=== PATIENT | female | born 1970 | race Caucasian/White ===

== ENCOUNTER 2018-07-30 13:15 | Outpatient (CLI) | payer BC ==
--- NOTE | 2018-07-31 14:23 | Mammography Report ---
BILATERAL MAMMOGRAM: FINDINGS: The breast tissue is heterogeneously dense, which could obscure detection of small masses (approximately 50%-75% glandular). No mass, distortion, suspicious calcification, or skin change is seen. Comparison is made with the prior examination from the [place] in June 2017. There are no interval changes identified. CAD was utilized. IMPRESSION: Negative mammogram. There is no mammographic evidence of malignancy. RECOMMENDATION: Follow-up per ACS guidelines. BI-RADS CATEGORY: 1 = Negative ACR BI-RADS MAMMOGRAPHIC CODES: 0 = Needs additional imaging evaluation; 1 = Negative; 2 = Benign; 3 = Probably benign; 4 = Suspicious; 5 = Malignant; 6 = Known biopsy-proven malignancy COMMENT: 1. Dense breast tissue, i.e., adenosis, fibrocystic changes, etc., may obscure an underlying neoplasm. 2. Approximately 10% of cancers are not detected with mammography. 3. A negative mammography report should not delay biopsy if a clinically suspicious mass is present. COMMENT: Patient follow-up letters are generated in [employer].
== END 2018-07-30 13:16 | disposition home or self-care (01) ==
LOC: MAMMO 13:15
PROVIDERS: ATTEND Internal Medicine
DX: R92.8 Other abnormal and inconclusive findings on diagnostic imaging of breast (principal)
CPT/HCPCS: 77066

== ENCOUNTER 2018-09-05 10:50 | Emergency (ER) | payer BC ==
[2018-09-05] MEDS ORDERED: NACL 0.9% 1000 ML 1,000 ML IV ONE ×2 (11:05→14:45)
[2018-09-05 11:26] LABS: Basophils # (Auto) 0.1 K/mm3 (0.0-0.1); Basophils % (Auto) 0.6 % (0.0-1.8); Eosinophils # (Auto) 0.1 K/mm3 (0.0-0.4); Eosinophils % (Auto) 1.4 % (0.0-4.3); Hematocrit 34.2 % (30.3-42.9); Hemoglobin 11.1 gm/dl (10.1-14.3); Lymphocytes # (Auto) 2.2 K/mm3 (1.2-5.4); Lymphocytes % (Auto) 23.6 % (13.4-35.0); Mean Corpuscular HGB Conc 32 % (30-34); Mean Corpuscular Volume 75 fl (79-97); Monocytes # (Auto) 0.5 K/mm3 (0.0-0.8); Monocytes % (Auto) 5.5 % (0.0-7.3); Platelet Count 404 K/mm3 (140-440); Red Blood Count 4.58 M/mm3 (3.65-5.03); Red Cell Distribution Width 18.8 % (13.2-15.2)
[2018-09-05 11:37] LABS: Bilirubin,Urine NEG (Negative); Blood,Urine MOD (Negative); Color,Urine Yellow (Yellow); Mucus,Urine FEW /HPF; Protein,Urine <15 mg/dL mg/dL (Negative); Urobilinogen,Urine < 2.0 mg/dL (<2.0)
[2018-09-05 11:48] LABS: Alanine Aminotransferase 16 units/L (7-56); BUN/Creatinine Ratio 18; Blood Urea Nitrogen 9 mg/dL (7-17); Calcium 8.9 mg/dL (8.4-10.2); Hemolysis Index 6
[2018-09-05] MEDS ORDERED: ZOFRAN ODT PO ONE (14:37)
[2018-09-05] MEDS ORDERED: NORCO 5/325 PO ONE (14:37)
[2018-09-05] MEDS ORDERED: MORPHINE IV ONE (14:45)
[2018-09-05] MEDS ORDERED: ZOFRAN IV ONE (14:45)
--- NOTE | 2018-09-05 14:45 | Emergency Department Report ---
ED General Adult HPI - General Chief complaint: Abdominal Pain Stated complaint: DIARRHEA/RT SIDE PAIN Time Seen by Provider: 09/05/18 14:06 Source: patient, lpn per diem Mode of arrival: Ambulatory Limitations: No Limitations - History of Present Illness Initial comments: Patient presents to the emergency department with a chief complaint of diarrhea 5 days and right flank pain. Patient denies nausea or vomiting. Patient denies any recent travel or visiting a petting zoo -: Gradual Location: abdomen Radiation: non-radiation Severity scale (0 -10): 8 Quality: aching Consistency: constant Improves with: none Worsens with: none Associated Symptoms: denies other symptoms Treatments Prior to Arrival: none - Related Data Previous Rx's Medication Instructions Recorded Last Taken Type Diphenoxylate/Atropine [Lomotil] 1 tab PO QID PRN #8 tablet 09/05/18 Unknown Rx Allergies Allergy/AdvReac Type Severity Reaction Status Date / Time No Known Allergies Allergy Unverified 09/05/18 10:55 ED Review of Systems ROS: Stated complaint: DIARRHEA/RT SIDE PAIN Other details as noted in HPI Comment: All other systems reviewed and negative Constitutional: denies: chills, fever Eyes: denies: eye pain, eye discharge, vision change ENT: denies: ear pain, throat pain Respiratory: denies: cough, shortness of breath, wheezing Cardiovascular: denies: chest pain, palpitations Endocrine: no symptoms reported Gastrointestinal: abdominal pain, diarrhea. denies: nausea Genitourinary: denies: urgency, dysuria, discharge Musculoskeletal: denies: back pain, joint swelling, arthralgia Skin: denies: rash, lesions Neurological: denies: headache, weakness, paresthesias Psychiatric: denies: anxiety, depression Hematological/Lymphatic: denies: easy bleeding, easy bruising ED Past Medical Hx - Past Medical History Previous Medical History?: Yes Additional medical history: Hx of kidney stones - Surgical History Hx Cholecystectomy: Yes - Social History Smoking Status: Never Smoker Substance Use Type: None - Medications Home Medications: Home Medications Medication Instructions Recorded Confirmed Last Taken Type Diphenoxylate/Atropine [Lomotil] 1 tab PO QID PRN #8 tablet 09/05/18 Unknown Rx ED Physical Exam - General Limitations: No Limitations General appearance: alert, in no apparent distress - Head Head exam: Present: atraumatic, normocephalic - Eye Eye exam: Present: normal appearance, PERRL, EOMI - ENT ENT exam: Present: mucous membranes moist - Neck Neck exam: Present: normal inspection - Respiratory Respiratory exam: Present: normal lung sounds bilaterally. Absent: respiratory distress - Cardiovascular Cardiovascular Exam: Present: regular rate, normal rhythm. Absent: systolic murmur, diastolic murmur, rubs, gallop - GI/Abdominal GI/Abdominal exam: Present: soft, tenderness (TTP right flank), normal bowel sounds. Absent: distended - Extremities Exam Extremities exam: Present: normal inspection - Back Exam Back exam: Present: normal inspection - Neurological Exam Neurological exam: Present: alert, oriented X3, CN II-XII intact. Absent: motor sensory deficit - Psychiatric Psychiatric exam: Present: normal affect, normal mood - Skin Skin exam: Present: warm, dry, intact, normal color. Absent: rash ED Course Vital Signs 09/05/18 09/05/18 09/05/18 11:01 14:46 15:11 Temperature 98.8 F Pulse Rate 90 84 Respiratory 20 20 16 Rate Blood Pressure 151/87 Blood Pressure 132/80 [Right] O2 Sat by Pulse 98 98 Oximetry ED Medical Decision Making - Lab Data Result diagrams: 09/05/18 11:17 09/05/18 11:17 Lab Results 09/05/18 09/05/18 09/05/18 Range/Units 11:17 11:17 11:21 WBC 9.4 (4.5-11.0) K/mm3 RBC 4.58 (3.65-5.03) M/mm3 Hgb 11.1 (10.1-14.3) gm/dl Hct 34.2 (30.3-42.9) % MCV 75 L (79-97) fl MCH 24 L (28-32) pg MCHC 32 (30-34) % RDW 18.8 H (13.2-15.2) % Plt Count 404 (140-440) K/mm3 Lymph % (Auto) 23.6 (13.4-35.0) % Cole % (Auto) 5.5 (0.0-7.3) % Eos % (Auto) 1.4 (0.0-4.3) % Baso % (Auto) 0.6 (0.0-1.8) % Lymph # 2.2 (1.2-5.4) K/mm3 Cole # 0.5 (0.0-0.8) K/mm3 Eos # 0.1 (0.0-0.4) K/mm3 Baso # 0.1 (0.0-0.1) K/mm3 Seg Neutrophils % 68.9 (40.0-70.0) % Seg Neutrophils # 6.4 (1.8-7.7) K/mm3 Sodium 141 (137-145) mmol/L Potassium 3.4 L (3.6-5.0) mmol/L Chloride 103.4 (98-107) mmol/L Carbon Dioxide 27 (22-30) mmol/L Anion Gap 14 mmol/L BUN 9 (7-17) mg/dL Creatinine 0.5 L (0.7-1.2) mg/dL Estimated GFR > 60 ml/min BUN/Creatinine Ratio 18 % Glucose 110 H (65-100) mg/dL Calcium 8.9 (8.4-10.2) mg/dL Total Bilirubin 0.30 (0.1-1.2) mg/dL AST 17 (5-40) units/L ALT 16 (7-56) units/L Alkaline Phosphatase 69 (35-129) units/L Total Protein 7.6 (6.3-8.2) g/dL Albumin 4.0 (3.9-5) g/dL Albumin/Globulin Ratio 1.1 % Lipase 22 (13-60) units/L Urine Color Yellow (Yellow) Urine Turbidity Clear (Clear) Urine pH 6.0 (5.0-7.0) Ur Specific Ocate 1.011 (1.003-1.030) Urine Protein <15 mg/dl (Negative) mg/dL Urine Glucose (UA) Neg (Negative) mg/dL Urine Ketones Neg (Negative) mg/dL Urine Blood Mod (Negative) Urine Nitrite Neg (Negative) Urine Bilirubin Neg (Negative) Urine Urobilinogen < 2.0 (<2.0) mg/dL Ur Leukocyte Esterase Neg (Negative) Urine WBC (Auto) 2.0 (0.0-6.0) /HPF Urine RBC (Auto) 11.0 (0.0-6.0) /HPF U Epithel Cells (Auto) 2.0 (0-13.0) /HPF Urine Mucus Few /HPF - Radiology Data Radiology results: report reviewed - Medical Decision Making Discussed results with patient and her lpn per diem Critical care attestation.: If time is entered above; I have spent that time in minutes in the direct care of this critically ill patient, excluding procedure time. ED Disposition Clinical Impression: Diarrhea, Flank pain Disposition: DC- TO HOME OR SELFCARE Is pt being admited?: No Does the pt Need Aspirin: No Condition: Stable Instructions: Flank Pain (ED), Acute Diarrhea (ED) Additional Instructions: return if worse Prescriptions: Diphenoxylate/Atropine [Lomotil] 1 tab PO QID PRN #8 tablet PRN Reason: Diarrhea Referrals: PRIMARY CARE,MD [Primary Care Provider] - 3-5 Days [facility] [Provider Group] - 3-5 Days [facility] [Provider Group] - 3-5 Days Forms: Work/School Release Form(ED) Time of Disposition: 17:24
--- NOTE | 2018-09-05 16:29 | Cat Scan Report ---
PROCEDURE: CT ABDOMEN PELVIS WO CON TECHNIQUE: CT abdomen and pelvis without contrast HISTORY: right flank pain COMPARISONS: FINDINGS: No focal abnormality identified in the lung bases. The nonenhanced images no focal abnormality identi fied within the first spleen or pancreas. Is nondistended. No evidence for colonic or small bowel distention Multiple bilateral renal calculi are present. There are 4 punctate nonobstructing right renal calculi. Within the right renal pelvis there is a 0.6 9 cm calculus no evidence for hydronephrosis. On the left 5 calculi are identified. Largest seen is within the renal pelvis measuring 0.84 cm. Sherman tionally within the lower pole there is 0.62 and 0.64 cm nonobstructing calculi. Additional punctate calculus noted at the lower pole. Low-density focus upper pole of the left kidney incompletely charac terized however most likely a cyst. No ureteral calculi identified bilaterally. Urinary bladder is unremarkable. No free fluid or free air identified The appendix is not definitively identified. IMPRESSION: Multiple bilateral nonobstructing renal calculi Low-density focus upper pole left kidney probable cyst.. This document is electronically signed by Orlando Rodriguez MD., September 05 2018 04:27:46 PM ET
[2018-09-05 17:41] VITALS: BP 130/81
== END 2018-09-05 17:43 | disposition home or self-care (01) ==
LOC: ED 10:50
DX: R10.9 Unspecified abdominal pain (principal); R19.7 Diarrhea, unspecified; Z90.49 Acquired absence of other specified parts of digestive tract
CPT/HCPCS: 36415; 74176; 80053; 81001; 83690; 85025; 96361; 96374; 96375; 99284; J2270; J2405; J7030; Q0162

== ENCOUNTER 2018-09-18 08:21 | Day surgery (SDC) | payer BC ==
--- NOTE | 2018-09-18 09:29 | Anesthesia Consultation ---
Anesthesia Consult and Med Hx Date of service: 09/18/18 - Airway Anesthetic Teeth Evaluation: Good ROM Head & Neck: Adequate Mental/Hyoid Distance: Adequate Mallampati Class: Class II Intubation Access Assessment: Good - Pulmonary Exam CTA: Yes - Cardiac Exam Cardiac Exam: RRR - Pre-Operative Health Status ASA Pre-Surgery Classification: ASA2 Proposed Anesthetic Plan: General - Pulmonary Hx Smoking: No Hx Asthma: Yes (INHALER PRN) Hx Sleep Apnea: No (JANET PRE SCREEN LOW RISK.) - Cardiovascular System Hx Hypertension: No - Central Nervous System Hx Back Pain: Yes (FROM STONE) - Hematic Hx Anemia: Yes - Other Systems Hx Cancer: No
[2018-09-18] MEDS ORDERED: ZOFRAN IV PRN (09:30)
[2018-09-18] MEDS ORDERED: DILAUDID IV PRN (09:30)
[2018-09-18] MEDS ORDERED: SUBLIMAZE IV PRN (09:30)
[2018-09-18] MEDS ORDERED: NARCAN 0.4 MG/1 ML IV PRN (09:30)
--- NOTE | 2018-09-18 09:30 | Anesthesia Day of Surgery ---
Anesthesia Day of Surgery - Day of Surgery Patient Examined: Yes Patient H&P Reviewed: Yes Patient is NPO: Yes Beta Blockers: No Cardiac Clearance: No Pulmonary Clearance: No
[2018-09-18] MEDS ORDERED: LACTATED RINGERS 1,000 ML IV SCH (10:00)
[2018-09-18] MEDS ORDERED: DIPRIVAN 10 MG/ML IV ONE (11:07)
[2018-09-18] MEDS ORDERED: SUBLIMAZE ONE (11:07)
[2018-09-18] MEDS ORDERED: XYLOCAINE MPF 2% ONE (11:13)
[2018-09-18] MEDS ORDERED: DECADRON ONE (11:13)
[2018-09-18] MEDS ORDERED: ZOFRAN ONE (11:13)
[2018-09-18] MEDS ORDERED: NEO SYNEPHRINE/NS Syringe(OR USE) IV ONE (11:13)
[2018-09-18] MEDS ORDERED: PEPCID IV ONE (11:37)
[2018-09-18] MEDS ORDERED: ANCEF/STERILE WATER 2 GM/20 ML IV NR (12:00)
--- NOTE | 2018-09-18 12:04 | Post Operative Note ---
Date of procedure: 09/18/18 Pre-op diagnosis: bilat stones no hydro Post-op diagnosis: same Findings: same Procedure: r eswl Anesthesia: BAKARI Surgeon: ROBERT JOHN Estimated blood loss: none Pathology: none Condition: stable Disposition: PACU
--- NOTE | 2018-09-18 12:05 | Discharge Summary ---
Short Stay Discharge Plan Activity: other (no strioaning ) Weight Bearing Status: Full Weight Bearing Diet: low fat, low cholesterol, low salt Special Instructions: other (inc fluids ) Follow up with: PRIMARY CARE, [Primary Care Provider] - 7 Days ROBERT JOHN MD [Staff Physician] - 7 Days Forms: Outpatient Surgery DC Inst.
--- NOTE | 2018-09-18 13:17 | Operative Report ---
PREOPERATIVE DIAGNOSES: Bilateral renal stones, right flank pain. POSTOPERATIVE DIAGNOSES: Bilateral renal stones, right flank pain. PROCEDURE: Right in situ lithotripsy. SURGEON: Jan Fierro MD ANESTHESIA: General. FINDINGS: This is a woman who has intermittent pain. She has a right renal pelvic stone, left renal pelvic stone with no hydronephrosis. She now presents for right lithotripsy. DESCRIPTION OF PROCEDURE: The patient was brought to lithotripsy and placed on the table. Stone was easily localized, both the AP and oblique image. Shocks were begun at 1 kV and increased to maximum of 7 kV. Total of 2500 shocks were given. The patient tolerated the procedure well. No significant complications. The plan will be a staged treatment of the other side once we were sure that there is no hydronephrosis and the pieces have passed She understands that she may require stenting or ureteroscopy if any of the pieces get stuck. She tolerated the procedure well and brought to recovery in stable condition. JOB# [id number] DALTON/EDGAR
[2018-09-18 17:31] VITALS: BP 136/83
== END 2018-09-18 14:15 | disposition home or self-care (01) ==
LOC: OR 08:21
PROVIDERS: ATTEND Urology
DX: N20.0 Calculus of kidney (principal); E78.00 Pure hypercholesterolemia, unspecified; J45.909 Unspecified asthma, uncomplicated; D64.9 Anemia, unspecified; Z80.3 Family history of malignant neoplasm of breast; Z79.899 Other long term (current) drug therapy; Z88.8 Allergy status to other drugs, medicaments and biological substances
CPT/HCPCS: 50590; 81025; J0690; J1100; J2370; J2405; J2704; J3010; J7120

== ENCOUNTER 2019-02-13 08:48 | Outpatient (CLI) | payer BC ==
[2019-02-13 11:16] LABS: Basophils # (Auto) 0.1 K/mm3 (0.0-0.1); Basophils % (Auto) 0.5 % (0.0-1.8); Eosinophils # (Auto) 0.1 K/mm3 (0.0-0.4); Eosinophils % (Auto) 0.8 % (0.0-4.3); Hematocrit 35.5 % (30.3-42.9); Lymphocytes # (Auto) 2.4 K/mm3 (1.2-5.4); Lymphocytes % (Auto) 20.8 % (13.4-35.0); Mean Corpuscular HGB Conc 31 % (30-34); Mean Corpuscular Volume 76 fl (79-97); Monocytes # (Auto) 0.5 K/mm3 (0.0-0.8); Monocytes % (Auto) 4.7 % (0.0-7.3); Platelet Count 364 K/mm3 (140-440); Red Cell Distribution Width 18.3 % (13.2-15.2)
[2019-02-13 11:35] LABS: Chol/HDL Ratio 4.62 %
[2019-02-18 11:09] LABS: Vitamin D, 25-OH, D2 5 ng/mL
== END 2019-02-13 08:49 | disposition home or self-care (01) ==
LOC: LAB 08:48
PROVIDERS: ATTEND Internal Medicine
DX: E78.5 Hyperlipidemia, unspecified (principal); E55.9 Vitamin D deficiency, unspecified; E61.1 Iron deficiency; E78.00 Pure hypercholesterolemia, unspecified
CPT/HCPCS: 36415; 80061; 82306; 82728; 83550; 85025

== ENCOUNTER 2019-02-26 07:50 | Day surgery (SDC) | payer BC ==
--- NOTE | 2019-02-26 08:50 | Anesthesia Day of Surgery ---
Anesthesia Day of Surgery - Day of Surgery Patient Examined: Yes Patient H&P Reviewed: Yes Patient is NPO: Yes
--- NOTE | 2019-02-26 08:50 | Anesthesia Consultation ---
Anesthesia Consult and Med Hx Date of service: 02/26/19 - Airway Anesthetic Teeth Evaluation: Good ROM Head & Neck: Adequate Mental/Hyoid Distance: Adequate Mallampati Class: Class II Intubation Access Assessment: Good - Pulmonary Exam CTA: Yes - Cardiac Exam Cardiac Exam: RRR - Pre-Operative Health Status ASA Pre-Surgery Classification: ASA2 Proposed Anesthetic Plan: General - Pulmonary Hx Smoking: No Hx Asthma: Yes (INHALER PRN) Hx Sleep Apnea: No (JANET PRE SCREEN HIGH RISK.) - Cardiovascular System Hx Hypertension: No - Central Nervous System Hx Back Pain: Yes (FROM STONE) - Hematic Hx Anemia: Yes - Other Systems Hx Cancer: No Hx Obesity: Yes (Morbid obesity BMI 42.1)
[2019-02-26] MEDS ORDERED: ZOFRAN IV PRN (09:00)
[2019-02-26] MEDS ORDERED: VERSED IV NR (09:00)
[2019-02-26] MEDS ORDERED: DILAUDID IV PRN (09:00)
[2019-02-26] MEDS ORDERED: TRANSDERM-SCOP TD NR (09:00)
[2019-02-26] MEDS ORDERED: LACTATED RINGERS 1,000 ML IV SCH (09:00)
[2019-02-26] MEDS ORDERED: ANCEF/STERILE WATER 2 GM/20 ML IV NR (09:30)
[2019-02-26] MEDS ORDERED: XYLOCAINE MPF 2% ONE (10:23)
[2019-02-26] MEDS ORDERED: VERSED ONE (10:23)
[2019-02-26] MEDS ORDERED: SUBLIMAZE ONE (10:24)
[2019-02-26] MEDS ORDERED: DIPRIVAN 10 MG/ML IV ONE (10:24)
--- NOTE | 2019-02-26 10:48 | Post Operative Note ---
Date of procedure: 02/26/19 Pre-op diagnosis: L ureteral stone Post-op diagnosis: same Findings: large stone Procedure: L eswl Anesthesia: BAKARI Surgeon: ROBERT JOHN Estimated blood loss: none Pathology: none Condition: stable Disposition: PACU
--- NOTE | 2019-02-26 10:49 | Discharge Summary ---
Short Stay Discharge Plan Activity: other (no straining ) Weight Bearing Status: Full Weight Bearing Diet: low fat, low cholesterol, low salt Special Instructions: other (inc fluids ) Follow up with: DAYDAY CLAY MD [Primary Care Provider] - 7 Days ROBERT JOHN MD [Staff Physician] - 7 Days
[2019-02-26] MEDS ORDERED: ZOFRAN ONE (11:10)
[2019-02-26] MEDS ORDERED: LACTATED RINGERS 1,000 ML ONE (11:10)
--- NOTE | 2019-02-26 11:51 | Operative Report ---
PREOPERATIVE DIAGNOSIS: Large left ureteral stone with a previous stent. POSTOPERATIVE DIAGNOSIS: Large left ureteral stone with a previous stent. PROCEDURE: Left lithotripsy. SURGEON: Dr. Fierro. ANESTHESIA: General. FINDINGS: This is a woman who had a stone that we were trying to electively treat. She had to go out of town into her country and when she came back, the stone was now in her ureter with severe pain. A stent was placed and now she presents for lithotripsy. DESCRIPTION OF PROCEDURE: The patient was brought to the lithotripsy suite and placed on the table. Stone was well localized, both the AP and oblique image. Shocks were begun at 1 kV, increased to 9 kV. A total of 2600 shocks were given. The patient tolerated the procedure well. There was minimal fragmentation. I suspect she will either need percutaneous nephrolithotomy or attempted ureteroscopy. She tolerated the procedure well and brought to recovery in stable condition. JOB# [id number] DALTON/EDGAR
[2019-02-26 13:03] VITALS: BP 104/71
--- NOTE | 2019-02-26 13:31 | Post Anesthesia Evaluation ---
- Post Anesthesia Evaluation Patient Participated: Yes Airway Patent: Yes Stable Respiratory Function: Yes Nausea/Vomiting: No Temp > 96.8F: Yes Pain Manageable: Yes Adequeate Hydration: Yes Anesthesia Complications: No Block Receding Appropriately: Not Applicable Patient on Ventilator: No
== END 2019-02-26 07:51 | disposition home or self-care (01) ==
LOC: OR 07:50
PROVIDERS: ATTEND Urology
DX: N20.1 Calculus of ureter (principal); E78.00 Pure hypercholesterolemia, unspecified; J45.909 Unspecified asthma, uncomplicated; E66.9 Obesity, unspecified; K21.9 Gastro-esophageal reflux disease without esophagitis; Z79.899 Other long term (current) drug therapy; Z88.8 Allergy status to other drugs, medicaments and biological substances; Z90.49 Acquired absence of other specified parts of digestive tract; Z68.41 Body mass index [BMI] 40.0-44.9, adult; Z98.890 Other specified postprocedural states; Z80.3 Family history of malignant neoplasm of breast; Z86.2 Personal history of diseases of the blood and blood-forming organs and certain disorders involving the immune mechanism
CPT/HCPCS: 50590; 81025; J2250; J2405; J2704; J3010; J7120

== ENCOUNTER 2019-03-25 12:44 | Day surgery (SDC) | payer BC ==
--- NOTE | 2019-03-25 13:35 | Anesthesia Consultation ---
Anesthesia Consult and Med Hx Date of service: 03/25/19 - Airway Anesthetic Teeth Evaluation: Good ROM Head & Neck: Adequate Mental/Hyoid Distance: Adequate Mallampati Class: Class II Intubation Access Assessment: Good - Pulmonary Exam CTA: Yes - Cardiac Exam Cardiac Exam: RRR - Pre-Operative Health Status ASA Pre-Surgery Classification: ASA3 Proposed Anesthetic Plan: General (JANET, Obesity , DMV post op Nausea for GA) - Pulmonary Hx Smoking: No Hx Asthma: Yes (INHALER PRN) COPD: No Hx Sleep Apnea: Yes (DX SLEEP APNEA , NO CPAP USE (RECENT DX)) - Cardiovascular System Hx Hypertension: No (OCC. NO MEDICATIONS) - Central Nervous System Hx Back Pain: Yes (FROM STONE) Hx Psychiatric Problems: No - Hematic Hx Anemia: Yes - Other Systems Hx Alcohol Use: No Hx Substance Use: No Hx Cancer: No Hx Obesity: Yes (Morbid obesity BMI 42.1)
--- NOTE | 2019-03-25 13:36 | Anesthesia Day of Surgery ---
Anesthesia Day of Surgery - Day of Surgery Patient Examined: Yes Patient H&P Reviewed: Yes Patient is NPO: Yes
[2019-03-25] MEDS ORDERED: HYDROmorphone 1 MG/1 ML INJ IV PRN (13:37)
[2019-03-25] MEDS ORDERED: ONDANSETRON 4 MG/2 ML INJ IV PRN (13:37)
[2019-03-25] MEDS ORDERED: MIDAZOLAM 2 MG/2 ML INJ IV NR (14:00)
[2019-03-25] MEDS ORDERED: LACTATED RINGERS 1,000 ML IV SCH (14:00)
[2019-03-25] MEDS ORDERED: ceFAZolin/STERILE WATER 2 GM/20 ML SYRINGE IV NR (14:02)
[2019-03-25] MEDS ORDERED: fentaNYL 100 MCG/2 ML INJ ONE (14:16)
[2019-03-25] MEDS ORDERED: LIDOCAINE MPF (2%) 20 MG/1 ML VIAL 5 ML ONE (14:16)
[2019-03-25] MEDS ORDERED: PROPOFOL 200 MG/20 ML VIAL IV ONE (14:16)
[2019-03-25] MEDS ORDERED: ONDANSETRON 4 MG/2 ML INJ ONE (14:16)
--- NOTE | 2019-03-25 15:39 | Post Operative Note ---
Date of procedure: 03/25/19 Pre-op diagnosis: ureteral stone Post-op diagnosis: same Findings: large stone Procedure: cysto ureteroscopy laser Surgeon: ROBERT JOHN Estimated blood loss: minimal Pathology: none Condition: stable Disposition: PACU
--- NOTE | 2019-03-25 15:40 | Discharge Summary ---
Short Stay Discharge Plan Activity: other (no straining ) Weight Bearing Status: Full Weight Bearing Diet: low fat, low cholesterol, low salt Special Instructions: other (inc fluids ) Durable Medical Equipment Needed Upon Discharge: other (has stent ) Follow up with: DAYDAY CLAY MD [Primary Care Provider] - 7 Days ROBERT JOHN MD [Staff Physician] - 7 Days
[2019-03-25] MEDS ORDERED: SCOPOLAMINE TRANSDERMAL PATCH 72 HR TD ONE (15:56)
[2019-03-25] MEDS ORDERED: IOHEXOL 300 MG/ML 50ML IV ONE (16:30)
[2019-03-25] MEDS ORDERED: KETOROLAC 30 MG/1 ML INJ ONE (16:43)
[2019-03-25] MEDS ORDERED: HYDROmorphone 1 MG/1 ML INJ ONE (16:44)
--- NOTE | 2019-03-25 17:40 | Fluoroscopy Report ---
5 fluoroscopic images submitted Indication: Intraoperative localization Impression: 5 images of the abdomen were submitted for documentation purposes with radiology involve ment. Bilateral retrograde pyelography performed with left-sided stone removal and stent placement. Please refer to the operative note for complete details. A total of 10 mL of Omnipaque 300 was utiliz ed. Fluoroscopic time: 2 minutes and 28 seconds Signer Name: Garett Artis MD Signed: 03/25/2019 5:35 PM Workstation Name: [id number]
--- NOTE | 2019-03-25 18:41 | Operative Report ---
PREOPERATIVE DIAGNOSIS: Large left upper ureteral stone. POSTOPERATIVE DIAGNOSES: Large left upper ureteral stone. PROCEDURE: Staged procedure, cystoscopy, left ureteroscopy, transposition the stone to the kidney and laser of the stone. SURGEON: Dr. Fierro. ANESTHESIA: General. FINDINGS: This is a woman with a large stone, lithotripsy cracked it just barely. She now presents for second stage of treatment. DESCRIPTION OF PROCEDURE: The patient was brought to the operating room and placed on the operating table. Following induction of anesthesia, prepped and draped in usual sterile fashion. Following induction of anesthesia, a stent was attempted to be withdrawn. It held up around the stent. A wire coiled in the kidney alongside the stent with an open end. We were then able to remove the stent. A second wire was placed with a double lumen catheter. Flexible ureteroscopy showed the stone. We pushed it into the kidney in the upper pole and lasered it into at least 8-10 pieces. The patient tolerated the procedure well. No significant complication. A double-J 7-Lithuanian coiled in the kidney and bladder and we will take the stent out in about 2 weeks. JOB# [id number] DALTON/EDGAR
[2019-03-25 19:04] VITALS: BP 145/70
== END 2019-03-25 18:55 | disposition home or self-care (01) ==
LOC: OR 12:44
PROVIDERS: ATTEND Urology
DX: N20.1 Calculus of ureter (principal); G47.30 Sleep apnea, unspecified; E66.9 Obesity, unspecified; K21.9 Gastro-esophageal reflux disease without esophagitis; Z79.899 Other long term (current) drug therapy; Z90.49 Acquired absence of other specified parts of digestive tract; Z80.3 Family history of malignant neoplasm of breast; Z86.2 Personal history of diseases of the blood and blood-forming organs and certain disorders involving the immune mechanism; Z88.8 Allergy status to other drugs, medicaments and biological substances
CPT/HCPCS: 52356; 74420; 81025; C1758; C1769; C2617; J0690; J1170; J1885; J2250; J2405; J2704; J3010; J7120; Q9967

== ENCOUNTER 2019-05-11 11:58 | Day surgery (SDC) | payer BC ==
[2019-05-11] MEDS ORDERED: SODIUM CHLORIDE 0.9% 1000 ML 1,000 ML IV SCH (12:45)
--- NOTE | 2019-05-11 12:55 | Anesthesia Day of Surgery ---
Anesthesia Day of Surgery - Day of Surgery Patient Examined: Yes Patient H&P Reviewed: Yes Patient is NPO: Yes
--- NOTE | 2019-05-11 12:56 | Anesthesia Consultation ---
Anesthesia Consult and Med Hx Date of service: 05/11/19 - Airway Anesthetic Teeth Evaluation: Good ROM Head & Neck: Adequate Mental/Hyoid Distance: Adequate Mallampati Class: Class II Intubation Access Assessment: Probably Good - Pre-Operative Health Status ASA Pre-Surgery Classification: ASA3 Proposed Anesthetic Plan: MAC - Pulmonary Hx Smoking: No Hx Asthma: Yes (INHALER PRN. Allergic) COPD: No Hx Sleep Apnea: Yes (DX SLEEP APNEA , NO CPAP USE (RECENT DX)) - Cardiovascular System Hx Hypertension: No (OCC. NO MEDICATIONS) - Central Nervous System Hx Back Pain: Yes (FROM STONE) Hx Psychiatric Problems: No - Gastrointestinal Hx Gastroesophageal Reflux Disease: Yes - Endocrine Hx Renal Disease: Yes (Stones) - Hematic Hx Anemia: Yes - Other Systems Hx Alcohol Use: No Hx Substance Use: No Hx Cancer: No Hx Obesity: Yes (Morbid obesity BMI 42.1)
[2019-05-11] MEDS ORDERED: PROPOFOL 200 MG/20 ML VIAL IV ONE ×2 (13:20→13:21)
--- NOTE | 2019-05-11 13:46 | Procedure Note ---
Date of procedure: 05/11/19 Pre-op diagnosis: GERD Post-op diagnosis: other (Mild to Moderate Erosive Esophagitis/Gastric Nodules (Gastric Body)/Gastritis/No Peptic Ulcer disease noted/Patent Pylorus/R/O Celiac Disease) Procedure: EGD with Biopsy Anesthesia: [facility] Surgeon: RUSLAN MESSINA Estimated blood loss: minimal Pathology: list Specimen disposition: to lab Condition: stable Disposition: same day (Treat with PPI and Baclofen and avoid aspirin and NSAID for 4 days; otherwise resume home medication. Follow up in 1 to 2 weeks ([phone]).)
--- NOTE | 2019-05-11 13:53 | Operative Report ---
PROCEDURE: Esophagogastroduodenoscopy with biopsy. INDICATIONS: This is a 48-year-old obese female who has been having GERD symptoms in spite of being on PPI. EGD was done to assess for the problem. DESCRIPTION OF PROCEDURE: Procedure was done after getting informed consent with MAC anesthesia. Instrument was passed through the hypopharynx into the esophagus, which showed mild to moderate distal erosive esophagitis. Photo documentation and biopsy was obtained from this area. The stomach showed gastric nodules and gastric polyps in the proximal stomach. Photo documentation and biopsies were obtained. Additional biopsy was also obtained from the gastric antrum, gastric body and angular incisura to rule out for H. pylori and atrophic gastritis. The pylorus was patent. The duodenum in the first and the second portion appeared normal. Biopsy was done from the second part to rule out for celiac disease. There was no peptic ulcer disease noted and minimal bleeding associated with the procedure. No complications associated with the procedure. ASSESSMENT: Gastroesophageal reflux disease symptoms, mild to moderate erosive esophagitis, gastritis, gastric polyp, gastric nodules, especially in the proximal stomach. Patent pylorus. No peptic ulcer disease noted and biopsy done to rule out for possible celiac disease. There was minimal bleeding associated with the procedure. No complications associated with the procedure. PLAN: To continue treatment with PPI. Also to add baclofen. Have the patient avoid aspirin and aspirin-related products for the next few days and follow up in the office in 1-2 weeks' time. The patient's treatment adjustment will be made according to the biopsy findings. The procedure was done in the GI lab with assistance of the GI lab team, which included TAL Walker as well as the production technologist and with assistance of anesthesia. JOB# [id number] STEPHEN/EDGAR
[2019-05-11 14:07] VITALS: BP 127/70
== END 2019-05-11 11:59 | disposition home or self-care (01) ==
LOC: GIO 11:58
DX: K21.0 Gastro-esophageal reflux disease with esophagitis (principal); K27.9 Peptic ulcer, site unspecified, unspecified as acute or chronic, without hemorrhage or perforation; K29.70 Gastritis, unspecified, without bleeding; K31.89 Other diseases of stomach and duodenum; J45.909 Unspecified asthma, uncomplicated; G47.30 Sleep apnea, unspecified; E66.9 Obesity, unspecified; Z98.890 Other specified postprocedural states; Z90.49 Acquired absence of other specified parts of digestive tract; Z88.8 Allergy status to other drugs, medicaments and biological substances; Z79.899 Other long term (current) drug therapy; Z68.41 Body mass index [BMI] 40.0-44.9, adult; Z87.442 Personal history of urinary calculi; Z80.3 Family history of malignant neoplasm of breast; Z86.2 Personal history of diseases of the blood and blood-forming organs and certain disorders involving the immune mechanism
CPT/HCPCS: 43239; 81025; 88305; 88342; J2704; J7030

== ENCOUNTER 2021-01-05 08:25 | Day surgery (SDC) | payer BC ==
[~2021-01-05 08:25] MED LIST: LACTATED RINGERS 1,000 ML IV SCH; SCOPOLAMINE TRANSDERMAL PATCH 72 HR TD NR
--- NOTE | 2021-01-05 10:23 | Anesthesia Day of Surgery ---
Anesthesia Day of Surgery - Day of Surgery Patient Examined: Yes Patient H&P Reviewed: Yes Patient is NPO: Yes
--- NOTE | 2021-01-05 10:23 | Anesthesia Consultation ---
Anesthesia Consult and Med Hx Date of service: 01/05/21 - Airway Anesthetic Teeth Evaluation: Good ROM Head & Neck: Adequate Mental/Hyoid Distance: Adequate Mallampati Class: Class III Intubation Access Assessment: Possibly Difficult - Pre-Operative Health Status ASA Pre-Surgery Classification: ASA3 Proposed Anesthetic Plan: General - Pulmonary Hx Smoking: No Hx Asthma: Yes (no recent inhaler use) Hx Sleep Apnea: Yes (+ CPAP) - Cardiovascular System Hx Hypertension: Yes (occasional HTN; takes lisinopril prn) Hx Heart Attack/AMI: No - Central Nervous System CVA: No - Gastrointestinal Hx Gastroesophageal Reflux Disease: Yes (took omeprazole this morning) - Endocrine Hx Renal Disease: No Hx Liver Disease: No Hx Insulin Dependent Diabetes: No Hx Non-Insulin Dependent Diabetes: No Hx Thyroid Disease: No - Other Systems Hx Obesity: Yes (BMI 44) - Additional Comments Anesthesia Medical History Comments: Hx PONV.
[2021-01-05] MEDS ORDERED: MIDAZOLAM 2 MG/2 ML INJ IV ONE (10:27)
[2021-01-05] MEDS ORDERED: ceFAZolin/STERILE WATER 2 GM/20 ML SYRINGE IV NR (10:27)
[2021-01-05] MEDS ORDERED: ONDANSETRON 4 MG/2 ML INJ ONE (11:45)
[2021-01-05] MEDS ORDERED: propofoL 200 MG/20 ML VIAL IV ONE (11:46)
[2021-01-05] MEDS ORDERED: fentaNYL 100 MCG/2 ML INJ ONE (11:46)
[2021-01-05] MEDS ORDERED: dexAMETHasone 20 MG/5 ML VIAL ONE (12:00)
[2021-01-05] MEDS ORDERED: LIDOCAINE MPF (2%) 20 MG/1 ML VIAL 5 ML ONE (12:31)
--- NOTE | 2021-01-05 13:08 | Short Stay Summary ---
Short Stay Documentation Date of service: 01/05/21 - History H&P: obtained from office - Allergies and Medications Current Medications: Allergies lactose Adverse Reaction (Verified 09/18/18 09:44) Diarrhea Home Medications Medication Instructions Recorded Confirmed Last Taken Type Omeprazole 20 mg PO DAILY 02/18/19 01/05/21 01/05/21 06:00 History Sharri Allergy 30 mg PO DAILY 12/29/20 12/29/20 01/04/21 History Iron 325 mg PO DAILY 12/29/20 12/29/20 01/04/21 History Lisinopril 10 mg PO DAILY 12/29/20 12/29/20 01/04/21 History Active Medications Cefazolin Sodium (Cefazolin/Sterile Water 2 Gm/20 Ml Syringe) 2 gm IV PREOP NR Stop: 01/05/21 23:59 Lactated Ringer's (Lactated Ringers) 1,000 mls @ 100 mls/hr IV DIRECT BRANDON Stop: 01/05/21 23:59 Last Admin: 01/05/21 11:00 Dose: 100 mls/hr Documented by: Scopolamine (Scopolamine Transdermal Patch 72 Hr) 1 each TD PREOP NR Stop: 01/05/21 23:00 Last Admin: 01/05/21 10:55 Dose: 1 each Documented by: - Brief post op/procedure progress note Date of procedure: 01/05/21 Pre-op diagnosis: left renal stone, sp stent Post-op diagnosis: same Procedure: left ESWL Anesthesia: GETA Surgeon: GABRIELLE DUFFY Condition: stable - Hospital course Hospital course: norco & post op info on chart - Disposition Condition at discharge: Stable Disposition: 01 HOME / SELF CARE / HOMELESS Short Stay Discharge Plan Follow up with: DAYDAY CLAY MD [Primary Care Provider] - 7 Days
--- NOTE | 2021-01-05 14:13 | Operative Report ---
DATE OF SURGERY: 01/05/2021 PREOPERATIVE DIAGNOSIS: Left renal stone. POSTOPERATIVE DIAGNOSIS: Left renal stone, status post stent placement. PROCEDURE: Left extracorporal shock wave lithotripsy, staged procedure. SURGEON: Jose Campbell MD ANESTHESIA: General. ESTIMATED BLOOD LOSS: Minimal. FLUIDS: Crystalloid. COMPLICATIONS: No complications. INDICATIONS: This patient is a 50-year-old female who actually as part of her workup in [place], she was found to have a large left renal stone. She is status post stent placement. She presents for lithotripsy. Risks, benefits and complications were explained. Between the patient and her friend's language, I was able to explain the procedure. She did not want a echocardiograph technician. DESCRIPTION OF PROCEDURE: The patient was taken to the operative suite, placed in a supine position. After adequate general anesthesia, stone was localized in 2 planes using fluoroscopy. Extracorporal shock wave lithotripsy was administered with a maximum kV of 8 and 2500 shocks. Five minute renal pause after 200 shocks was performed. The patient tolerated the procedure well. She was extubated and taken to recovery room. She will go home with [place] and follow up in the office. TID: [id number] RECEIPT: [id number] SAILAJA/ELAINE/LUCÍA
--- NOTE | 2021-01-05 14:47 | Post Anesthesia Evaluation ---
- Post Anesthesia Evaluation Patient Participated: Yes Airway Patent: Yes Stable Respiratory Function: Yes Nausea/Vomiting: No Temp > 96.8F: Yes Pain Manageable: Yes Adequeate Hydration: Yes Anesthesia Complications: No
[2021-01-05 18:37] VITALS: BP 135/73
== END 2021-01-05 08:26 | disposition home or self-care (01) ==
LOC: OR 08:25
PROVIDERS: ATTEND Urology
DX: N20.0 Calculus of kidney (principal); I10 Essential (primary) hypertension; E66.9 Obesity, unspecified; K21.9 Gastro-esophageal reflux disease without esophagitis; G47.30 Sleep apnea, unspecified; Z79.899 Other long term (current) drug therapy; Z91.040 Latex allergy status; Z98.890 Other specified postprocedural states
CPT/HCPCS: 50590; 81025; J0690; J1100; J2250; J2405; J2704; J3010; J7120

== ENCOUNTER 2021-01-16 07:23 | Day surgery (SDC) | payer BC ==
--- NOTE | 2021-01-16 08:34 | Anesthesia Consultation ---
Anesthesia Consult and Med Hx Date of service: 01/16/21 - Airway Anesthetic Teeth Evaluation: Good ROM Head & Neck: Adequate Mental/Hyoid Distance: Adequate Mallampati Class: Class III Intubation Access Assessment: Possibly Difficult (prev LMA 4) - Pre-Operative Health Status ASA Pre-Surgery Classification: ASA3 Proposed Anesthetic Plan: General - Pulmonary Hx Smoking: No Hx Asthma: Yes (no recent inhaler use) Hx Respiratory Symptoms: No Hx Sleep Apnea: Yes (+ CPAP) - Cardiovascular System Hx Hypertension: Yes (occasional HTN; takes lisinopril prn) Hx Heart Attack/AMI: No - Central Nervous System CVA: No - Gastrointestinal Hx Gastroesophageal Reflux Disease: Yes (took omeprazole this morning) - Endocrine Hx Renal Disease: No Hx Liver Disease: No Hx Insulin Dependent Diabetes: No Hx Non-Insulin Dependent Diabetes: No Hx Thyroid Disease: No - Other Systems Hx Obesity: Yes (BMI 44) - Additional Comments Anesthesia Medical History Comments: Had surgery <2wks ago without anesthetic complications.
[2021-01-16] MEDS ORDERED: ONDANSETRON 4 MG/2 ML INJ IV PRN (08:35)
--- NOTE | 2021-01-16 08:35 | Anesthesia Day of Surgery ---
Anesthesia Day of Surgery - Day of Surgery Patient Examined: Yes Patient H&P Reviewed: Yes Patient is NPO: Yes
[2021-01-16] MEDS ORDERED: ceFAZolin/Water 2 GM/20 ML 2 GM/20 ML SYRINGE IV ONE (08:40)
[2021-01-16] MEDS ORDERED: ceFAZolin/STERILE WATER 2 GM/20 ML SYRINGE IV NR (09:00)
[2021-01-16] MEDS: MIDAZOLAM 2 MG/2 ML INJ IV NR ×2 (09:02→09:55)
[2021-01-16] MEDS ORDERED: fentaNYL 100 MCG/2 ML INJ ONE (09:38)
[2021-01-16] MEDS ORDERED: propofoL 200 MG/20 ML VIAL IV ONE (09:39)
[2021-01-16] MEDS ORDERED: LIDOCAINE MPF (2%) 20 MG/1 ML VIAL 5 ML ONE (11:00)
[2021-01-16] MEDS ORDERED: ONDANSETRON 4 MG/2 ML INJ ONE (11:11)
[2021-01-16] MEDS ORDERED: dexAMETHasone 20 MG/5 ML VIAL ONE (11:11)
[2021-01-16] MEDS ORDERED: WATER FOR IRRIG STERILE 2000 ML IR ONE (11:17)
[2021-01-16] MEDS ORDERED: WATER FOR IRRIG STERILE 1,000 ML BOTTLE IR ONE (11:18)
[2021-01-16] MEDS ORDERED: IOHEXOL 300 MG/ML 50ML IV ONE (11:18)
[2021-01-16] MEDS ORDERED: GENTAMICIN 40 MG/ML VIAL 2 ML ONE (11:28)
[2021-01-16] MEDS ORDERED: SODIUM CHLORIDE 0.9% 0 ML ONE (11:28)
[2021-01-16] MEDS ORDERED: SODIUM CHLORIDE 0.9% 250ML 250 ML ONE (11:34)
[2021-01-16] MEDS: fentaNYL 100 MCG/2 ML INJ IV PRN ×4 (12:28→12:59)
[2021-01-16] MEDS ORDERED: hydrALAZINE 20 MG/1 ML INJ ONE (13:03)
[2021-01-16] MEDS ORDERED: hydrALAZINE 20 MG/1 ML INJ IV ONE (13:03)
--- NOTE | 2021-01-16 13:46 | Post Operative Note ---
Date of procedure: 01/16/21 Pre-op diagnosis: stones Post-op diagnosis: same Findings: huge stones Procedure: cysto ureteroscopy laser Anesthesia: GETA Estimated blood loss: none Pathology: list (stones stent) Specimen disposition: to lab, given to patient/family Condition: stable Disposition: PACU
--- NOTE | 2021-01-16 13:47 | Discharge Summary ---
Short Stay Discharge Plan Activity: other (no straining ) Weight Bearing Status: Full Weight Bearing Diet: low fat, low cholesterol, low salt Special Instructions: other (inc fluids ) Durable Medical Equipment Needed Upon Discharge: other (j stent ) Additional Instructions: INCREASE FLUID INTAKE PLEASE USE STRAINER PROVIDED EVERY TIME YOU URINATE AND SAVE CONTENTS STRAINED FOR FOLLOW-UP APPOINTMENT. CALL THE OFFICE TO SET A FOLLOW-UP APPOINTMENT AND IF YOU HAVE ANY QUESTIONS OR CONCERNS REGARDING THE PROCEDURE. Follow up with: DAYDAY CLAY MD [Primary Care Provider] - 7 Days Forms: Outpatient Surgery DC Inst.
--- NOTE | 2021-01-16 14:07 | Operative Report ---
DATE OF SURGERY: 01/16/2021 PREOPERATIVE DIAGNOSES: Previously placed stent in [place], ureteral stones, renal stones, post-lithotripsy with severe calcifications of the upper triple coiled stent in the bladder. POSTOPERATIVE DIAGNOSES: Previously placed stent in [place] ureteral stones, renal stones, post-lithotripsy with severe calcifications of the upper triple coiled stent in the bladder. PROCEDURE: Cystoscopy, left ureteral dilatation with the inner core of the sheath, ureteroscopy, laser of stones in the ureter and around the stent, laser of stone in the bladder around the stent exchange. SURGEON: Jan Fierro M.D. ANESTHESIA: General. FINDINGS: This is a woman who has severe pain. She has a large stone surrounding the coil, which was treated with lithotripsy. She also has a large stone around the coil in the bladder. She now presents for treatment. DESCRIPTION OF PROCEDURE: The patient was brought to the operating room and placed on the operating table. Following induction of anesthesia, placed in lithotomy position, prepped and draped in sterile fashion. A wire coiled alongside the stent and using the ureteral access inner sheath, this was easily passed to the kidney. This helped dilate the ureter. The flexible scope easily passed to the kidney and everything was in position on the retrograde in the kidney. Using the laser at 8-10 rose, we broke up the stone along the coil of the upper stent in the kidney. Once this was released, we could partially withdraw the stent into the bladder and out the urethra, but the bladder aspect of it would not come out because of the large stone around the coil in the bladder. Using the cystoscope, we broke that up and we were able to remove the stent intact. A 7 [place] double J coiled in the kidney and bladder. There were no large ureteral stones. We lasered anything that we saw. The patient tolerated the procedure well and brought to recovery in stable condition. TID: [id number] RECEIPT: [id number] DALTON/FRITZ
[2021-01-16 15:42] VITALS: BP 133/76
--- NOTE | 2021-01-16 15:53 | Fluoroscopy Report ---
FLUOROSCOPY RETROGRADE UROGRAPHY HISTORY: Left ureteral stone COMPARISON: 03/25/2019 IMPRESSION: 86 seconds of fluoroscopy time was provided by radiology during retrograde urography by saadia see. 4 fluoroscopic images are presented demonstrating left ureteral stone removal and left ureter al stent exchange. Holmium laser was utilized to break up the stone per the operative notes. Please c orrelate with the procedural report as needed. Signer Name: Chad Huffman Jr, MD Signed: 01/16/2021 3:48 PM Workstation Name: [id number]
== END 2021-01-16 14:15 | disposition home or self-care (01) ==
LOC: OR 07:23
PROVIDERS: ATTEND Urology
DX: N20.0 Calculus of kidney (principal); R03.0 Elevated blood-pressure reading, without diagnosis of hypertension; I10 Essential (primary) hypertension; J45.909 Unspecified asthma, uncomplicated; G47.30 Sleep apnea, unspecified; K21.9 Gastro-esophageal reflux disease without esophagitis; E66.9 Obesity, unspecified; Z79.899 Other long term (current) drug therapy; Z98.890 Other specified postprocedural states; Z88.8 Allergy status to other drugs, medicaments and biological substances; Z71.3 Dietary counseling and surveillance; Z68.41 Body mass index [BMI] 40.0-44.9, adult
CPT/HCPCS: 52356; 74420; 88300; A4217; C1726; C1758; C1769; C2617; J0360; J0690; J1100; J1580; J2250; J2405; J2704; J3010; J7050; J7120; Q9967; 88302